=== PATIENT | female | born 2000 ===

== ENCOUNTER 2018-05-11 15:46 | Emergency (ER) | payer SELFPAY ==
[2018-05-11 16:45] VITALS: BP 102/65; PULSE 74; RESP 18; TEMP 98.5; O2SAT 100
--- NOTE | 2018-05-11 18:52 | ED PDOC ---
HPI: Abdomen Chief Complaint (Nursing): Abdominal Pain Chief Complaint (Provider): Abdominal Pain History Per: Patient History/Exam Limitations: no limitations Onset/Duration Of Symptoms: Days (x3) Current Symptoms Are (Timing): Still Present Additional Complaint(s): 18 y/o female with no significant PMHx presents to the ED for evaluation of pelvic cramping, onset three days ago. Patient reports of having her last menstrual period on 04/14/2018 and further states she and her boyfriend are trying to conceive. Patient is requesting to know if current pain is due to . Patient additionally reports of having whitish/yellowish discharge since Friday associated with some vaginal irritation. Otherwise, patient denies any vaginal bleeding. PMD: NO PROVIDER Past Medical History Reviewed: Historical Data, Nursing Documentation, Vital Signs Vital Signs: Last Vital Signs Temp 98.5 F 05/11/18 16:43 Pulse 74 05/11/18 16:43 Resp 18 05/11/18 16:43 BP 102/65 05/11/18 16:43 Pulse Ox 100 05/11/18 16:43 - Medical History PMH: No Chronic Diseases - Surgical History Surgical History: No Surg Hx - Family History Family History: States: Unknown Family Hx - Home Medications Home Medications: Ambulatory Orders Medication Instructions Recorded Metronidazole [Metrogel-Vaginal] 1 ea VG HS #5 gel 05/11/18 Nitrofurantoin Monohyd/M-Cryst 100 mg PO BID #10 capsule 05/11/18 [Macrobid 100 mg Capsule] - Allergies Allergies/Adverse Reactions: Allergies Allergy/AdvReac Type Severity Reaction Status Date / Time No Known Allergies Allergy Verified 05/11/18 16:43 Review of Systems ROS Statement: Except As Marked, All Systems Reviewed And Found Negative Genitourinary Female: Positive for: Vaginal Discharge, Pelvic Pain. Negative for: Vaginal Bleeding Physical Exam - Reviewed Nursing Documentation Reviewed: Yes Vital Signs Reviewed: Yes - Physical Exam Appears: Positive for: No Acute Distress Head Exam: Positive for: ATRAUMATIC, NORMOCEPHALIC Skin: Positive for: Normal Color, Warm, Dry Eye Exam: Positive for: Normal appearance, EOMI, PERRL Neck: Positive for: Normal, Painless ROM Cardiovascular/Chest: Positive for: Regular Rate, Rhythm. Negative for: Murmur Respiratory: Positive for: Normal Breath Sounds. Negative for: Respiratory Distress Gastrointestinal/Abdominal: Positive for: Normal Exam, Soft. Negative for: Tenderness Pelvic Exam: Positive for: Other (Deferred: Patient refusing pelvic exam at this time. Provider will ask again once labs result. ) Back: Positive for: Normal Inspection. Negative for: L CVA Tenderness, R CVA Tenderness, Vertebral Tenderness Extremity: Positive for: Normal ROM. Negative for: Deformity Neurological/Psych: Positive for: Awake, Alert, Oriented (x3). Negative for: Motor/Sensory Deficits - ECG O2 Sat by Pulse Oximetry: 100 (RA) Pulse Ox Interpretation: Normal Medical Decision Making Medical Decision Making: Time: 1758 Plan: -- Urinalysis -- Urine -- Upreg results are negative. Advised to repeat a home test in 1-2 weeks. -- Patient approved of request for pelvic exam. Exam chaperones by SHAKIR Rojas, patient tolerated exam well. Cervical os closed. Moderate amount of white milky discharge found. No cervical motion tenderness found. No adnexal mass felt. Patient advised on clinical findings -- Will obtain culture and swab for Gonorrhea and Chlamydia -- Chlamydia/GC, RNA, TMA -- Genital Culture -- Urine C&S -- Patient given a prescription for a 5 day course of macrobid and Metronida zole. Patient given referral to women's health clinic. ED Parameters discussed. __ Scribe Attestation: Documented by Zahra Sherman, acting as a scribe MATEO Knott. Provider Scribe Attestation: All medical record entries made by the Scribe were at my direction and personally dictated by me. I have reviewed the chart and agree that the record accurately reflects my personal performance of the history, physical exam, medical decision making, and the department course for this patient. I have also personally directed, reviewed, and agree with the discharge instructions and disposition. Disposition - Clinical Impression Clinical Impression: UTI (urinary tract infection), BV (bacterial vaginosis) - Patient ED Disposition Is Patient to be Admitted: No Counseled Patient/Family Regarding: Diagnosis, Need For Followup, Rx Given - Disposition Referrals: [facility] [Outside] Disposition: Routine/Home Disposition Time: 18:54 Condition: GOOD Prescriptions: Metronidazole [Metrogel-Vaginal] 1 ea VG HS #5 gel Nitrofurantoin Monohyd/M-Cryst [Macrobid 100 mg Capsule] 100 mg PO BID #10 capsule Instructions: Urinary Tract Infections in Adults, Bacterial Vaginosis (DC) Print Language: KITTITIAN - POKeven Present On Arrival: None
[2018-05-11 18:56] LABS: SQUAMOUS EPITHIAL < 1 /hpf (0-5); URINE BILIRUBIN NEGATIVE (NEGATIVE); URINE BLOOD MODERATE (NEGATIVE); URINE CALCIUM OXALATE CRYSTALS MOD /hpf (<OCC); URINE CLARITY SLIGHTY-CLOUDY (Clear); URINE COLOR YELLOW (YELLOW); URINE GLUCOSE (UA) NEG (NEGATIVE); URINE LEUKOCYTE ESTERASE NEG Leu/uL (Negative); URINE PROTEIN 30 mg/dL (NEGATIVE); URINE UROBILINOGEN 0.2-1.0 mg/dL (0.2-1.0)
== END 2018-05-11 18:41 | disposition home or self-care (01) ==
LOC: H.ER 15:46
DX: N39.0 Urinary tract infection, site not specified (principal); N76.0 Acute vaginitis

== ENCOUNTER 2018-06-13 17:27 | Emergency (ER) | payer OTHER ==
[2018-06-13 18:00] VITALS: O2SAT 100
--- NOTE | 2018-06-13 18:28 | ED PDOC ---
HPI: Abdomen Time Seen by Provider: 06/13/18 18:06 Chief Complaint (Nursing): GI Problem Chief Complaint (Provider): Abdominal pain History Per: Patient History/Exam Limitations: no limitations Onset/Duration Of Symptoms: Days (x2) Current Symptoms Are (Timing): Still Present Associated Symptoms: Vomiting. denies: Fever, Diarrhea Additional Complaint(s): 18 y/o female, , presents to the ER complaining of on and off lower abdominal cramping since yesterday and vomiting throughout but worse last couple of days. Patient reports she is 8 weeks . She has not had an ultrasound done but she does take vitamins. Denies diarrhea or fever. PMD: none Past Medical History Reviewed: Historical Data, Nursing Documentation, Vital Signs Vital Signs: Last Vital Signs Temp 98.5 F 06/13/18 17:57 Pulse 87 06/13/18 17:57 Resp 16 06/13/18 17:57 BP 110/67 06/13/18 17:57 Pulse Ox 100 06/13/18 17:57 Primary Care Provider: FAMILY PROVIDER,NO - Medical History PMH: Migraine Denies: Chronic Kidney Disease - Surgical History Surgical History: No Surg Hx - Family History Family History: States: Unknown Family Hx - Home Medications Home Medications: Ambulatory Orders Medication Instructions Recorded Metronidazole [Metrogel-Vaginal] 1 ea VG HS #5 gel 05/11/18 Nitrofurantoin Monohyd/M-Cryst 100 mg PO BID #10 capsule 05/11/18 [Macrobid 100 mg Capsule] Doxylamine/Pyridoxine HCl (B6) 1 - 2 each PO HS #16 tablet. 06/13/18 [Tessy Danielle 10-10 mg Tablet] - Allergies Allergies/Adverse Reactions: Allergies Allergy/AdvReac Type Severity Reaction Status Date / Time No Known Allergies Allergy Verified 06/13/18 17:57 Review of Systems ROS Statement: Except As Marked, All Systems Reviewed And Found Negative Constitutional: Negative for: Fever Gastrointestinal: Positive for: Vomiting, Abdominal Pain. Negative for: Diarrhea Physical Exam - Reviewed Nursing Documentation Reviewed: Yes Vital Signs Reviewed: Yes - Physical Exam Appears: Positive for: No Acute Distress Head Exam: Positive for: ATRAUMATIC, NORMOCEPHALIC Skin: Positive for: Normal Color, Warm, Dry Eye Exam: Positive for: Normal appearance Neck: Positive for: Normal, Painless ROM Cardiovascular/Chest: Positive for: Regular Rate, Rhythm Respiratory: Positive for: Normal Breath Sounds. Negative for: Wheezing, Respiratory Distress Gastrointestinal/Abdominal: Positive for: Tenderness (suprapubic) Extremity: Positive for: Normal ROM Neurological/Psych: Positive for: Awake, Alert, Normal Tone - Laboratory Results Result Diagrams: 06/13/18 19:04 06/13/18 19:16 - ECG O2 Sat by Pulse Oximetry: 100 (RA) Pulse Ox Interpretation: Normal Medical Decision Making Medical Decision Making: Initial Impression: Abdominal pain and vomiting in Differential includes complications in such as ectopic and threatened miscarriage or hyperemesis in . Initial Plan: --Type and screen stat --BMP --Beta HCG stat --ED urine --ED urine dipstick --CBC --OB transvaginal US 19:00 Patient signed out to Dr. Wu. Pending labs and US. -- Scribe Attestation: Documented by Gagandeep Kwon acting as a scribe for Rufus Farooq MD. Provider Scribe Attestation: All medical record entries made by the Scribe were at my direction and personally dictated by me. I have reviewed the chart and agree that the record accurately reflects my personal performance of the history, physical exam, medical decision making, and the department course for this patient. I have also personally directed, reviewed, and agree with the discharge instructions and disposition. Disposition - Clinical Impression Clinical Impression: Hyperemesis gravidarum - Patient ED Disposition Is Patient to be Admitted: Transfer of Care Counseled Patient/Family Regarding: Studies Performed, Diagnosis - Disposition Disposition: Transfer of Care Disposition Time: 19:00 Condition: STABLE Prescriptions: Doxylamine/Pyridoxine HCl (B6) [Tessy Danielle 10-10 mg Tablet] 1 - 2 each PO HS #16 tablet. Instructions: Hyperemesis Gravidarum Forms: [facility] (Iraqi) Print Language: TURKISH Patient Signed Over To: Ethan Wu
[2018-06-13 19:21] LABS: BASO % 0.4 % (0.0-2.0); EOS % 0.1 % (0.0-4.0); HEMOGLOBIN 12.5 g/dL (12.0-16.0); LYMPH # 1.3 K/uL (1.0-4.3); LYMPH % 16.7 % (20.0-40.0); MEAN CELL VOLUME 85.9 fl (81.0-99.0); MEAN CORPUSCULAR HEMOGLOBIN 28.4 pg (27.0-31.0); MEAN PLATELET VOLUME 9.5 fl (7.2-11.7); MONO # 0.3 K/uL (0.0-0.8); MONO % 3.9 % (0.0-10.0); NEUT # 6.3 K/uL (1.8-7.0); NEUT % 78.9 % (50.0-75.0); NRBC % 0.1 % (0.0-0.0); RBC 4.4 Mil/uL (3.80-5.20); RED CELL DISTRIBUTION WIDTH 14.5 % (11.5-14.5)
--- NOTE | 2018-06-13 19:31 | ED PDOC ---
- Laboratory Results Result Diagrams: 06/13/18 19:04 06/13/18 19:16 - ECG O2 Sat by Pulse Oximetry: 100 (RA) Medical Decision Making Medical Decision Makin:00 Patient signed out to this provider from Dr. Farooq. Pending labs and US. 21:01 OB US Findings Uterus Single live intrauterine gestation. CRL equivalent to 8 wks/1 days gestation Gestational sac diameter equivalent to 8 wks/0 days gestation Yolk sac is visualized. Heart rate: 183.72 bpm. Uterus measures 9.4 x 7.31 x 5.2 cm. No mass. Right Ovary Measures 2.69 x 2.53 x 1.23 cm with volume of 4.46 cc. No mass. Normal flow. Left Ovary Measures 2.13 x 1.78 x 1.07 cm with volume of 2.13cc. No mass. Normal flow. Free Fluid None. Other Findings None. Impression Single live intrauterine gestation with gestational age equivalent to 8 weeks 1 day by crown rump length. 21:59 Labs reviewed showing no clinically significant abnormalities. Patient reports improvement in symptoms and is tolerating PO. Patient is stable for discharge with diagnosis of hyperemesis gravidarum. Scribe Attestation: Documented by Gagandeep Kwon acting as a scribe for Ethan Wu MD. Provider Scribe Attestation: All medical record entries made by the Scribe were at my direction and personally dictated by me. I have reviewed the chart and agree that the record accurately reflects my personal performance of the history, physical exam, medical decision making, and the department course for this patient. I have also personally directed, reviewed, and agree with the discharge instructions and disposition. Disposition - Clinical Impression Clinical Impression: Hyperemesis gravidarum - POA Present On Arrival: None - Disposition Disposition: Routine/Home Disposition Time: 21:00 Condition: STABLE Prescriptions: Doxylamine/Pyridoxine HCl (B6) [Tessy Danielle 10-10 mg Tablet] 1 - 2 each PO HS #16 tablet. Instructions: Hyperemesis Gravidarum Forms: [facility] (Slovak) Print Language: MARTINIQUAIS
[2018-06-13 19:34] LABS: BLOOD UREA NITROGEN 9 mg/dl (7-17); CALCIUM 9.7 mg/dL (8.4-10.2); GFR NON-AFRICAN AMERICAN > 60
[2018-06-13 22:34] VITALS: BP 116/56; PULSE 78; RESP 18; TEMP 98.7
--- NOTE | 2018-06-14 18:31 | US ---
Date of service: 06/13/2018 PROCEDURE: OB Pelvic Ultrasound HISTORY: Lower abdominal pain LMP: 04/24/2018 COMPARISON: None available. FINDINGS: UTERUS: Uterus measures approximately 9.4 x 7.3 x 5.2 Gestational sac: MSD = 3.1 cm = 8 weeks 0 days. Yolk sac: 0.25 cm pole: CRL = 1.7 cm = 8 weeks 1 day Heart rate: 183 bpm. age (Ultrasound estimated): 8 weeks 1 day +/-0 weeks 4 day Jessica-gestational hemorrhage: None. Date of delivery (Ultrasound estimated) : 01/22/2019 CERVIX: No cervical abnormality seen. RIGHT OVARY: Measures 2.7 x 2.5 x 1.2 cm. No mass lesion. Normal flow. LEFT OVARY: Measures 2.1 x 1.8 x 1.1 cm. No solid mass. Normal flow. FREE FLUID: None. OTHER FINDINGS: None. IMPRESSION: Living intrauterine gestation estimated at approximately 8 weeks 1 day +/-0 weeks 4 days. Heart rate document at 183 BPM.
== END 2018-06-13 22:25 | disposition home or self-care (01) ==
LOC: H.ER 17:27
DX: O21.0 Mild hyperemesis gravidarum (principal)

== ENCOUNTER 2018-06-16 19:35 | Emergency (ER) | payer OTHER ==
[2018-06-16 20:39] VITALS: BP 118/69; PULSE 80; RESP 16; TEMP 98.8; O2SAT 97
--- NOTE | 2018-06-17 04:36 | ED PDOC ---
HPI: Female Pain Time Seen by Provider: 06/16/18 23:11 Chief Complaint (Nursing): Female Genitourinary Chief Complaint (Provider): Female Genitourinary History Per: Patient History/Exam Limitations: no limitations Onset/Duration Of Symptoms: Days Current Symptoms Are (Timing): Still Present Additional Complaint(s): 18 y/o female with a PMHx of and is currently 6 weeks presents to the ED for evaluation of vaginal spotting and . Patient was seen in this ED on Friday and had a workup for abdominal pain and . At that point, patient had a normal workup and was discharged home. Patient returned to this ED today after noticing mild vaginal spotting. However, patient denies any pain at this point as well as urinary symptoms. PMD: [facility] Abnormal Vaginal Bleeding: Yes : 1 Para: 0 Past Medical History Reviewed: Historical Data, Nursing Documentation, Vital Signs Vital Signs: Last Vital Signs Temp 98.8 F 06/16/18 20:37 Pulse 80 06/16/18 20:37 Resp 16 06/16/18 20:37 BP 118/69 06/16/18 20:37 Pulse Ox 97 06/16/18 20:37 Primary Care Provider: IMTIAZ GUO - Medical History PMH: Migraine Denies: Chronic Kidney Disease - Surgical History Surgical History: No Surg Hx - Family History Family History: States: Unknown Family Hx - Home Medications Home Medications: Ambulatory Orders Medication Instructions Recorded Metronidazole [Metrogel-Vaginal] 1 ea VG HS #5 gel 05/11/18 Nitrofurantoin Monohyd/M-Cryst 100 mg PO BID #10 capsule 05/11/18 [Macrobid 100 mg Capsule] Doxylamine/Pyridoxine HCl (B6) 1 - 2 each PO HS #16 tablet. 06/13/18 [Tessy Danielle 10-10 mg Tablet] - Allergies Allergies/Adverse Reactions: Allergies Allergy/AdvReac Type Severity Reaction Status Date / Time No Known Allergies Allergy Verified 06/16/18 20:37 Review of Systems ROS Statement: Except As Marked, All Systems Reviewed And Found Negative Genitourinary Female: Positive for: Vaginal Bleeding Physical Exam - Reviewed Nursing Documentation Reviewed: Yes Vital Signs Reviewed: Yes - Physical Exam Appears: Positive for: No Acute Distress Head Exam: Positive for: ATRAUMATIC, NORMOCEPHALIC Skin: Positive for: Normal Color, Warm, Dry Eye Exam: Positive for: Normal appearance, EOMI, PERRL Neck: Positive for: Normal, Painless ROM, Supple Cardiovascular/Chest: Positive for: Regular Rate, Rhythm. Negative for: Murmur Respiratory: Positive for: Normal Breath Sounds. Negative for: Respiratory Distress Gastrointestinal/Abdominal: Positive for: Normal Exam, Soft. Negative for: Tenderness Extremity: Positive for: Normal ROM. Negative for: Deformity Neurological/Psych: Positive for: Awake, Alert, Oriented (x3), Motor/Sensory Deficits - Laboratory Results Result Diagrams: 06/17/18 01:38 06/17/18 01:38 - ECG O2 Sat by Pulse Oximetry: 97 (RA) Pulse Ox Interpretation: Normal Medical Decision Making Medical Decision Making: Time: 2315 Impression: 18 y/o female with vaginal spotting in early Plan: -- ABO/RH Type -- Type and Screen -- Beta-HCG, Quantitative -- ED Urine -- ED Urine Dipstick -- CBC with Differentials -- Heplock Insertion -- Urinalysis -- US Transvaginal Time: 433 US RESULTS Transvaginal pelvic ultrasound. Indication: Brownish discharge, today. Technique: Real-time ultrasound images were obtained. Comparison: 06/13/2018. Findings: The uterus measures 9.4x6.5x8.9 cm. An intrauterine is seen. Estimated gestational age is 9 weeks. The crown-rump length measures 2.6 cm. heart rate 139 beats per minute. Normal ovaries. Impression: Single, intrauterine gestation. No abnormality seen. Electronically signed on June 17, 2018 4:34:13 AM EDT by: Travis Murray M.D., Certified by ABR, MSK, Neuroradiology -- On re-evaluation, patient reports an in improvement of symptoms. Patient is stable upon discharge home with a diagnosis of a threatened miscarriage. Scribe Attestation: Documented by Zahra Sherman, acting as a scribe for Ethan Wu MD. Provider Scribe Attestation: All medical record entries made by the Scribe were at my direction and personally dictated by me. I have reviewed the chart and agree that the record accurately reflects my personal performance of the history, physical exam, medical decision making, and the department course for this patient. I have also personally directed, reviewed, and agree with the discharge instructions and disposition. Disposition - Clinical Impression Clinical Impression: Threatened miscarriage - Patient ED Disposition Is Patient to be Admitted: No Counseled Patient/Family Regarding: Studies Performed, Diagnosis, Need For Followup - Disposition Disposition: Routine/Home Disposition Time: 04:34 Condition: STABLE Instructions: Threatened Miscarriage Forms: [facility] (Yi) Print Language: NEPALI
[2018-06-17 04:52] LABS: BASO % 0.6 % (0.0-2.0); BLOOD UREA NITROGEN 10 mg/dl (7-17); EOS # 0.1 K/uL (0.0-0.7); GFR NON-AFRICAN AMERICAN > 60; HEMOGLOBIN 11.7 g/dL (12.0-16.0); LYMPH # 2.3 K/uL (1.0-4.3); LYMPH % 33.5 % (20.0-40.0); MEAN CELL VOLUME 85.4 fl (81.0-99.0); MEAN CORPUSCULAR HEMOGLOBIN 28.9 pg (27.0-31.0); MEAN CORPUSCULAR HGB CONC 33.8 g/dL (33.0-37.0); MEAN PLATELET VOLUME 9.7 fl (7.2-11.7); MONO # 0.5 K/uL (0.0-0.8); MONO % 7.7 % (0.0-10.0); NEUT % 57.2 % (50.0-75.0); NRBC % 0.1 % (0.0-0.0); RBC 4.06 Mil/uL (3.80-5.20); RED CELL DISTRIBUTION WIDTH 14.8 % (11.5-14.5)
[2018-06-17 04:53] LABS: ALB/GLOB RATIO 1.3 (1.0-2.1); ALBUMIN 3.9 g/dL (3.5-5.0); ALT/SGPT 26 U/L (9-52); AST/SGOT 22 U/L (14-36)
--- NOTE | 2018-06-17 11:17 | US ---
Date of service: 06/17/2018 HISTORY: /suprapubic pain LMP 04/14/2018. Gestational age by LMP 9 weeks 1 day. COMPARISON: None available. TECHNIQUE: Transabdominal and transvaginal technique utilized. FINDINGS: UTERUS: Measures 9.4 x 6.5 by 9.7 cm. Cm. Normal in size and appearance. No fibroid or other mass lesion seen. Within the uterus and intrauterine gestation is present mean gestational sac diameter 3 point 7 8 cm. Corresponding to an 8 week 0 day-10 week 0 day gestation. Hebo-rump length mean 2.6 cm corresponds 9 week 0 day-9 weeks 6 days gestation. pole with heart rate of 140 beats per minute CERVIX: No cervical abnormality identified. Cervical length 4.1 cm and closed. RIGHT OVARY: Measures 3.1 x 1.9 x 2.2 cm. No solid mass. Normal flow. LEFT OVARY: Measures 3.0 x 2.1 x 2.2 cm. No solid mass. Normal flow. FREE FLUID: No significant free fluid noted. OTHER FINDINGS: None. IMPRESSION: Single intrauterine gestation with normal cardiac activity whose ultrasound biometric of 01/19/2019. Parameters correspond to a 2 day +/-0 weeks 5 day gestation. Estimated date of delivery by ultrasound is 01/18/2019. This contrasts with the clinical dates by LMP of a gestational age of 9 week 1 day with an estimated date of delivery per LMP of 01/19/2019 No perigestational hemorrhage seen. Concordant results (preliminary interpretation) provided by [email or web address].
== END 2018-06-17 05:15 | disposition home or self-care (01) ==
LOC: H.ER 19:35
DX: O20.0 Threatened abortion (principal); Z3A.09 9 weeks gestation of pregnancy